=== PATIENT | female | born 1995 | race Caucasian/White ===

== ENCOUNTER 2018-11-08 19:11 | Emergency (ER) | payer MEDICAID ==
[~2018-11-08] VITALS: Ht 160 cm; Wt 77.1 kg
[~2018-11-08 19:11] MED LIST: FER325 PO; PREN1KIT74 PO
[2018-11-08 20:30] VITALS: BP 143/70
--- NOTE | 2018-11-08 21:40 | NUR ---
PT AMBULATED TO BED 10
--- NOTE | 2018-11-08 21:45 | NUR ---
PATIENT PRESENTS TO ED WITH C/O CONGESTION X 1 DAY. PT DENIES N/V/D; SKIN IS PINK/WARM/DRY; AAOX4 WITH EVEN AND STEADY GAIT; LUNGS CLEAR BL; HR EVEN AND REGULAR; PATIENT STATES PAIN OF 2/10 AT THIS TIME; VSS; PATIENT POSITIONED FOR COMFORT; HOB ELEVATED; BEDRAILS UP X2; BED DOWN. ER MD MADE AWARE OF PT STATUS.
--- NOTE | 2018-11-08 22:24 | NUR ---
Patient discharged with v/s stable. Written and verbal after care instructions given and explained. Patient alert, oriented and verbalized understanding of instructions. Ambulatory with steady gait. All questions addressed prior to discharge. ID band removed. Patient advised to follow up with PMD. Rx of MOTRIN, PREDNISONE, AND SUDAFED given. Patient educated on indication of medication including possible reaction and side effects. Opportunity to ask questions provided and answered.
[2018-11-08 22:25] VITALS: BP 143/70
== END 2018-11-08 22:24 | disposition home or self-care (01) ==
LOC: MED 19:11
DX: J32.9 Chronic sinusitis, unspecified (principal); R05 Cough; Z79.899 Other long term (current) drug therapy
CPT/HCPCS: 99283

== ENCOUNTER 2021-01-30 20:57 | Emergency (ER) | payer MEDICAID ==
[~2021-01-30] VITALS: Ht 160 cm; Wt 77.1 kg
[2021-01-30 21:02] VITALS: BP 148/105
--- NOTE | 2021-01-30 21:14 | NUR ---
TO ER BED 3
--- NOTE | 2021-01-30 21:15 | NUR ---
25 Y/O FEMALE CAME TO THE ED FOR BILATERAL LEG PAIN. PT STATES " I HAVE BEEN HAVING PAIN ON BOTH MY LEGS FOR A WEEK, BUT TODAY IT WORSEN. I TOOK NAPROXEN PRIOR TO ARRIVAL, BUT IT DIDN'T HELP ME, PAIN IS 10/10. I ALSO HAVE AN UPPER BACK PAIN ON MY LEFT AREA." DENIES N/V/D; SKIN IS PINK/WARM/DRY; AAOX4 WITH EVEN AND STEADY GAIT; LUNGS CLEAR BL; HR EVEN AND REGULAR; PATIENT POSITIONED FOR COMFORT; HOB ELEVATED; BEDRAILS UP X2; BED DOWN. ER MD MADE AWARE OF PT STATUS. NKA PMH: DENIES
[2021-01-30] MEDS ORDERED: KETOROLAC 30 MG/ML VIAL IVP ONE (21:20)
[2021-01-30] MEDS ORDERED: NACL 0.9% 1,000 ML IV ONE (21:20)
--- NOTE | 2021-01-30 21:43 | NUR ---
IV 20 G STARTED TO RAC. POSITIVE BLOOD RETURN. PT TOLERATED WELL.
[2021-01-30] MEDS ORDERED: IBUP-2213 PO (22:08)
[2021-01-30] MEDS ORDERED: ONDA8TAB87 PO (22:08)
[2021-01-30] MEDS ORDERED: ACET-8386 PO (22:08)
--- NOTE | 2021-01-30 22:20 | NUR ---
COLLECTED NOVEL SWAB AND SENT TO LAB. HANDED TO CPT ARIEL
[2021-01-30 22:55] VITALS: BP 148/105
--- NOTE | 2021-01-30 22:57 | NUR ---
Patient discharged with v/s stable. Written and verbal after care instructions given and explained. Patient alert, oriented and verbalized understanding of instructions. Ambulatory with steady gait. All questions addressed prior to discharge. ID band removed. Patient advised to follow up with PMD. Rx of IBUPROFEN, ZOFRAN, AND NORCO given. Patient educated on indication of medication including possible reaction and side effects. Opportunity to ask questions provided and answered.
== END 2021-01-30 22:57 | disposition home or self-care (01) ==
LOC: MED 20:57
DX: M79.10 Myalgia, unspecified site (principal); Z20.822 Contact with and (suspected) exposure to COVID-19; R11.2 Nausea with vomiting, unspecified; Z79.899 Other long term (current) drug therapy; Z88.8 Allergy status to other drugs, medicaments and biological substances
CPT/HCPCS: 81002; 81025; 96361; 96374; 99283; J1885; J7030; U0003

== ENCOUNTER 2021-02-18 12:12 | Inpatient (IN) | payer MEDICAID, SELFPAY ==
[~2021-02-18] VITALS: Ht 160 cm; Wt 72.6 kg
[~2021-02-18 12:12] MED LIST changes: +ACET-8386 PO; +IBUP-2213 PO; +ONDA8TAB87 PO
[2021-02-18 12:16] VITALS: BP 128/87
--- NOTE | 2021-02-18 12:21 | NUR ---
pt ambulatory to bed #12
--- NOTE | 2021-02-18 12:35 | NUR ---
MARGARET Parr is evaluating the patient at bedside.
--- NOTE | 2021-02-18 12:43 | NUR ---
Patient ambulated to restroom for urine sample.
--- NOTE | 2021-02-18 12:45 | NUR ---
25 y/o F referred from PCP with c/c abnormal labs: Hgb 7.0 Patient A&Ox4, ambulatory, states she was recently diagnosed with anemia and prescribed Iron. Patient was seen at primary care and received results of Hgb 7.0 and advised to visit ER. Patient reports associated "palpitations" with walking. Denies N/V/D, pain, fever/chills, dizziness, syncope, headache, chest pain, SOB. Patient placed into position of comfort; urine sample collected. RR even/unlabored; HR 103. Lung sounds CTA. Bed locked in lowest position, side rails x 1, call light in reach. PMH: Anemia Meds: Iron NKA
--- NOTE | 2021-02-18 12:50 | NUR ---
Lab at bedside
--- NOTE | 2021-02-18 12:55 | NUR ---
RAD at bedside.
--- NOTE | 2021-02-18 12:59 | NUR ---
MARGARET Parr is reevaluating patient at bedside.
[2021-02-18 13:02] LABS: HEMATOCRIT 20.9 % (36-48); LYMPHOCYTES # (AUTO) 0.5 K/uL (2.5-16.5); MONOCYTES # (AUTO) 0.2 K/uL (0.8-1.0); NEUTROPHILS # (AUTO) 2.9 K/uL (1.8-7.7); RED BLOOD CELL COUNT(AUTO) 2.55 MIL/uL (4.20-5.40); RED CELL DISTRIBUTION WIDTH 15.3 % (11.6-13.7); WHITE BLOOD COUNT (AUTO) 4.1 K/uL (4.8-10.8)
[2021-02-18 13:15] LABS: ANION GAP 16.3 (8-16); CARBON DIOXIDE 16.1 mmol/L (21-32); POTASSIUM 5.4 mmol/L (3.5-5.1)
--- NOTE | 2021-02-18 13:15 | NUR ---
Juan otero swab collected, walked to lab and handed to CPT. Joy
[2021-02-18 13:20] LABS: BASOPHILS % (AUTO) 0.2 % (0.0-2.0); EOSINOPHILS # (AUTO) 0.4 K/uL (0-0.4); EOSINOPHILS % (AUTO) 10.9 % (0.0-4.0); LYMPHOCYTES % (AUTO) 11.3 % (20.5-51.1); MEAN CORPUSCULAR HEMOGLOBIN 27 pg (27-31); MEAN CORPUSCULAR HGB CONC 33 g/dL (33-37); MEAN CORPUSCULAR VOLUME 81.9 fL (80-94); MONOCYTES % (AUTO) 5.5 % (1.7-9.3); NEUTROPHILS % (AUTO) 72.1 % (42.2-75.2); PLATELET COUNT (AUTO) 108 K/uL (140-450)
--- NOTE | 2021-02-18 13:23 | NUR ---
Critical lab values received: BUN 70, Cr 2.03, Hgb 6.9, Hct 20.9, Plt 108. MARGARET Parr made aware.
[2021-02-18 13:25] LABS: HEMOGLOBIN 6.9 g/dL (12.0-16.0)
[2021-02-18] MEDS ORDERED: NACL 0.9% 1,000 ML IV ONE (13:45)
[2021-02-18] MEDS ORDERED: POTASSIUM CHLORIDE 10 MEQ TABER PO PRN (13:55)
[2021-02-18] MEDS ORDERED: DOCUSATE SODIUM 100 MG GELCAP PO PRN (13:55)
[2021-02-18] MEDS ORDERED: MAG SULF 2000 MG/WATER PREMIX 50 ML IV PRN (13:55)
[2021-02-18] MEDS ORDERED: LORazepam 2 MG/ML VIAL IM/IVP PRN (13:55)
[2021-02-18] MEDS ORDERED: ONDANSETRON 4 MG/2 ML VIAL IM/IVP PRN (13:55)
--- NOTE | 2021-02-18 14:01 | NUR ---
US AT BEDSIDE
--- NOTE | 2021-02-18 14:07 | NUR ---
Lab at bedside for blood draw.
--- NOTE | 2021-02-18 14:14 | NUR ---
Lab collected, handed to CPT Meaghan at ER bedside.
[2021-02-18 14:52] LABS: BILIRUBIN,URINE NEGATIVE (NEGATIVE); BLOOD, URINE 3+ (NEGATIVE); COLOR,URINE YELLOW (YELLOW); LEUKOCYTE ESTERASE ,URINE 1+ (NEGATIVE); NITRITE, URINE NEGATIVE (NEGATIVE); PH,URINE 5.5 (5.0-9.0); UGLUCOSE NEGATIVE (NEGATIVE)
[2021-02-18 15:00] LABS: APPEARANCE,URINE HAZY (CLEAR)
--- NOTE | 2021-02-18 15:06 | NUR ---
Report given to LONI Mendoza.
[2021-02-18 15:08] LABS: BARBITURATE, URINE NEGATIVE ng/ml (NEG <=200); BENZODIAZEPINE, URINE NEGATIVE ng/mL (NEG <=200); CANNABINOID, URINE NEGATIVE ng/mL (NEG <=50); COCAINE, URINE NEGATIVE ng/mL (NEG <=300); OPIATE, URINE POSITIVE ng/mL (NEG <=2000); PHENCYCLIDINE SCREEN,URINE NEGATIVE ng/mL (NEG <=25)
--- NOTE | 2021-02-18 15:16 | NUR ---
Patient will be admitted to care of Dr. Suarez. Admited to Med-Surg. Will go to [id number]. Belongings list completed. Report to LONI Mendoza.
[2021-02-18 15:22] LABS: PROTHROMBIN TIME 10.1 secs (10.8-13.4)
[2021-02-18 15:30] VITALS: BP 125/77
--- NOTE | 2021-02-18 15:30 | NUR ---
Admitted from ED , with chief complaint of PALPITATIONS, TIREDNESS X 3 WEEKS . PT IS AAOX4, 25 y/o ,Female, Cooperative, oriented to call light, bed, phone,television, bathroom, smoking policy,visiting hours, procedures, ID bracelet on. Belongings list checked. INSTRUCTED PT TO CALL FOR ASSISTANCE, CALL LIGHT WITHIN REACH. PT VERBALIZED UNDERSTANDING.
[2021-02-18] MEDS: NACL 0.9% 1,000 ML IV SCH ×2 (16:44→23:55)
[2021-02-18 17:12] LABS: CHOL/HDL RATIO 6.8 (1-4.5); FREE T4 (FREE THYROXINE) 1.22 ng/dL (0.76-1.46); MAGNESIUM 2.4 mg/dL (1.8-2.4); PHOSPHORUS 6.5 mg/dL (2.5-4.9); THYROID STIMULATING HORMONE 1.46 uIU/mL (0.34-3.74)
--- NOTE | 2021-02-18 17:30 | NUR ---
PT SEEN BY DR. DOAN AT THE BEDSIDE.
[2021-02-18 17:56] LABS: ALBUMIN 1.2 g/dL (3.4-5.0)
[2021-02-18 18:11] LABS: POTASSIUM 5.5 mmol/L (3.5-5.1)
[2021-02-18 18:17] LABS: ANION GAP 18.7 (8-16); CARBON DIOXIDE 12.8 mmol/L (21-32); TOTAL BILIRUBIN 0.2 mg/dL (0.0-1.0)
--- NOTE | 2021-02-18 18:45 | NUR ---
1 UNIT PRBC STARTED. V/S STABLE. WILL MONITOR FOR BLOOD TRANSFUSION REACTIONS.
--- NOTE | 2021-02-18 19:00 | NUR ---
PT'S TEMPERATURE ELEVATED (100.0 F) COOLING MEASURES PROVIDED. WILL CONTINUE TO MONITOR FOR BLOOD TRANSFUSION REACTIONS.
--- NOTE | 2021-02-18 19:10 | NUR ---
PT AMBULATORY TO THE BATHROOM, ACTIVITY TOLERATED WELL. ENDORSED TO NEXT SHIFT NURSE FOR CONTINUITY OF CARE.
[2021-02-18 20:00] VITALS: BP 128/57
--- NOTE | 2021-02-18 20:00 | NUR ---
RECEIVED A REPORT FROM DAY RN EARLIER FOR CONTINUITY OF CARE. PATIENT A/A/OX4, LAYING IN BED GETTING BLOOD TRANSFUSION. PER RN DEANNA PATIENT STARTED HAVING FEVER 100.0 AFTER 15 MINUTES OF TRANSFUSION. PATIENT DENIES ANY CHEST PAIN, SOB, PALPITATIONS AND ITCHING. INSTRUCTED THE PATIENT NOT TO BUNDLE UP WITH HER BLANKET BECAUSE SHE HAS FEVER AND PATIENT VERBALIZED UNDERSTANDING. WILL CONTINUE TO MONITOR THE PATIENT AND WILL NOTIFY MD ABOUT THE PT HAVING FEVER. CALL LIGHT WITHIN REACH.
--- NOTE | 2021-02-18 20:45 | NUR ---
CALLED DR SIEGEL AND NOTIFIED MD THAT THE PATIENT IS HAVING FEVER 101.0 SINCE THE BLOOD TRANSFUSION WAS STARTED PER DAY LONI HUERTA.ALSO MD MADE AWARE THAT THE PATIENT DENIES ANY SOB, PALPITATIONS AND CHEST PAIN. PATIENT ONLY COMPLAINING OF SHIVERING BECAUSE OF THE FEVER. SPOKE WITH DR SIEGEL AND AWARE. ORDERED TO GIVE THE PRN TYLENOL 650 MG PO.
[2021-02-18] MEDS: ACETAMINOPHEN 325 MG TAB PO PRN (20:53)
--- NOTE | 2021-02-18 22:34 | NUR ---
BLOOD TRANSFUSION STILL ON GOING. APTIENT WAS GIVEN TYLENOL 650 MG PO EARLIER. LATEST TEMPERATURE NOW IS 99.9. INSTRUCTED THE PATIENT TO START SAVING ALL HER URINE FOR THE 24 HOUR URINE COLLECTION ORDERED. PATIENT VERBALIZED UNDERSTANDING. WILL CONTINUE TO OBSERVE.
--- NOTE | 2021-02-18 23:15 | NUR ---
1 UNIT OF PRBC TRANSFUSED ORDERED AND COMPLETED. NO TRANSFUSION REACTION NOTED AND NO COMPLAIN FROM THE PATIENT. WILL REPEAT H/H IN 2 HOURS.
[2021-02-19] VITALS: BP 123/84
--- NOTE | 2021-02-19 02:18 | NUR ---
PATIENT ASLEEP AT THIS TIME. VISIBLE CHEST RISE AND FALL NOTED. PT NOT IN ANY DISTRESS AND NO COMPLAIN AT THIS TIME. CALL LIGHT WITHIN REACH.
[2021-02-19 03:20] LABS: BASOPHILS % (AUTO) 0.4 % (0.0-2.0); EOSINOPHILS # (AUTO) 0.4 K/uL (0-0.4); EOSINOPHILS % (AUTO) 8.6 % (0.0-4.0); HEMATOCRIT 21.2 % (36-48); LYMPHOCYTES # (AUTO) 0.8 K/uL (2.5-16.5); LYMPHOCYTES % (AUTO) 16.8 % (20.5-51.1); MEAN CORPUSCULAR HEMOGLOBIN 26 pg (27-31); MEAN CORPUSCULAR HGB CONC 33 g/dL (33-37); MEAN CORPUSCULAR VOLUME 78.2 fL (80-94); MONOCYTES # (AUTO) 0.3 K/uL (0.8-1.0); MONOCYTES % (AUTO) 6.2 % (1.7-9.3); NEUTROPHILS # (AUTO) 3.1 K/uL (1.8-7.7); PLATELET COUNT (AUTO) 86 K/uL (140-450); RED BLOOD CELL COUNT(AUTO) 2.71 MIL/uL (4.20-5.40); RED CELL DISTRIBUTION WIDTH 17.9 % (11.6-13.7); WHITE BLOOD COUNT (AUTO) 4.5 K/uL (4.8-10.8)
[2021-02-19 03:27] LABS: HEMOGLOBIN 6.9 g/dL (12.0-16.0)
--- NOTE | 2021-02-19 03:38 | NUR ---
PATIENT HGB-6.9 AND HCT-21.2 AFTER THE 1 UNIT BLOOD TRANSFUSION. MESSAGED DR SIEGEL AND AWAITING FOR MD TO RESPOND.
[2021-02-19 03:55] LABS: MAGNESIUM 2.1 mg/dL (1.8-2.4)
[2021-02-19 04:00] VITALS: BP 124/91
--- NOTE | 2021-02-19 04:00 | NUR ---
VITAL SIGNS STABLE, AFEBRILE, SATING 100% ON RA. NOT IN ANY DISTRESS AND NO COMPLAIN AT THIS TIME. CALL LIGHT WITHIN REACH.
[2021-02-19 04:01] LABS: ANION GAP 14.4 (8-16); POTASSIUM 5.4 mmol/L (3.5-5.1)
[2021-02-19 04:02] LABS: CREATININE 1.6 mg/dL (0.6-1.3)
--- NOTE | 2021-02-19 06:42 | NUR ---
PATIENT STABLE. NO ACUTE EVENTS THROUGHOUT THE NIGHT. PT NOT IN ANY DISTRESS. NO COMPLAIN AT THIS TIME. ALL NEEDS ATTENDED.CALL LIGHT WITHIN REACH. WILL ENDORSE THE PT TO THE ONCOMING RN FOR CONTINUITY OF CARE.
--- NOTE | 2021-02-19 07:30 | NUR ---
PT ENDORSED FOR CONTINUIYT OF CARE. POC DISCUSSED. PT IS RESTING COMFORTABLE IN BED. PT RECEIVED TRANSFUSION DURING PROPERTY MAINTENANCE TECHNICIAN. HGB FROM AM CAME BACK AT 6.9, ANOTHER UNIT OF RBC DUE. PT IS ON RA WITH CHEST RISING AND FALLING EVEN AND UNLABORED. SAFETY MEASURES IN PLACE, CALL LIGHT WITHIN REACH. WILL CONTINUE TO MONITOR.
--- NOTE | 2021-02-19 07:38 | NUR ---
ENDORSED PATIENT TO DAY RN FOR CONTINUITY OF CARE. SIGNING OFF.
[2021-02-19 08:00] VITALS: BP 128/57
--- NOTE | 2021-02-19 08:36 | NUR ---
PATIENT HAS BEEN SCREENED AND CATEGORIZED HIGH NUTRITION RISK. PATIENT WILL BE SEEN WITHIN 1-2 DAYS OF ADMISSION. 02/19/21-02/20/21 PATIENT NEEDED FNS REFERRAL FOR [address] SAM[address] C[address]
--- NOTE | 2021-02-19 09:24 | NUR ---
DC PLANNIN YRS OLD FEMALE PATIENT WAS ADMITTED FROM HOME WITH A DX OF ANEMIA. PT HAS NO MEDICAL HISTORY. H/H 6.9/20.9 TRANSFUSED 1 UNIT OF PRBC. CXR NO ACUTE FINDINGS. RENAL US SHOWED REPRESENT A COLUMN OF PATRIZIA VERSUS UNDERLYING MASS. CT HEAS NEGATIVE. CT ABD/PELVIS SHOWED SMALL PERICARDIAL EFFUSION. RAPID COVID TEST NEGATIVE. BLOOD AND URINE CULTURE PENDING. ADMINISTERED IVF, IV ABX ROCEPHIN CONSULTED WITH STAKING ENGINEER FOR DORENE AND STUDENT SERVICES REPRESENTATIVE DR DOAN PANCYTOPENIA. DC PLANING TO GO HOME WHEN STABLE CM TO FOLLOW
[2021-02-19] MEDS ORDERED: SODIUM ZIRCONIUM CYCLOSILICATE 10 GM POWD.PACK PO SCH (09:30)
--- NOTE | 2021-02-19 10:15 | NUR ---
BLOOD TRANSFUSION STARTED. PT VITAL SIGNS STABLE. PT STATES NO SIGNS OF ACUTE DISTRESS. SAFETY MEASURES IN PLACE, CALL LIGHT WITHIN REACH.
[2021-02-19] MEDS: FERROUS SULFATE 325 MG TABEC PO SCH (10:19)
[2021-02-19] MEDS: ASCORBIC ACID 500 MG/5 ML ORASYR PO SCH (10:19)
[2021-02-19] MEDS: NACL 0.9% 1,000 ML IV SCH ×2 (10:20→19:55)
[2021-02-19] MEDS: CALCIUM ACETATE 667 MG TAB PO SCH ×2 (12:43→17:02)
--- NOTE | 2021-02-19 13:24 | NUR ---
02/19/21 RD INITIAL ASSESSMENT COMPLETED PLEASE REFER TO NUTRITION ASSESSMENT UNDER CARE ACTIVITY FOR ESTIMATED NUTRITIONAL NEEDS. 1. CONTINUE RENAL DIET TOLERATED 2. IF P.O INTAKE IS >75% RECOMMEND NEPRO/ENSURE. 3. RD TO FOLLOW-UP 2-3 DAYS, HIGH RISK SAMANTHA CARR, RD
--- NOTE | 2021-02-19 13:31 | NUR ---
BLOOD TRANSFUSION COMPLETE. PT TOLERATED PROCEDURE. PT IN STABLE CONDITION WITH NO SIGNS OF ACUTE DISTRESS. SAFETY MEASURE IN PLACE, CALL LIGHT WITHIN REACH.
[2021-02-19 16:00] VITALS: BP 140/80
--- NOTE | 2021-02-19 16:34 | NUR ---
CONSENT SIGNED FOR CT OF ABDOMEN WITH CONTRAST
--- NOTE | 2021-02-19 18:26 | NUR ---
PT RETURNED FROM CT IN STABLE CONDITION.
--- NOTE | 2021-02-19 19:24 | NUR ---
PT ENDORSED TO CHEESE CUTTER FOR CONTINUITY OF CARE. IN STABLE CONDITION
--- NOTE | 2021-02-19 19:30 | NUR ---
PT ENDORSED TO LAND ECONOMIST FOR CONTINUITY OF CARE, POC DISCUSSE.
--- NOTE | 2021-02-19 19:35 | NUR ---
RECEIVED BEDSIDE REPORT FROM CHRISTIAN MESA. PT AOX4 ON ROOM AIR. NO S/S RESPIRATORY DISTRESS. NO C/O PAIN AT THIS TIME. IV SITE LAC PATENT INTACT INFUSING IVF ORDERED WELL. S/P 1 UNIT PRBC 02/19/21. SAFETY MEASURES IN PLACE. CALL LIGHT WITHIN REACH. WILL CONTINUE TO MONITOR
[2021-02-19 20:00] VITALS: BP 150/87
[2021-02-19 20:20] LABS: HEMOGLOBIN 7.9 g/dL (12.0-16.0)
[2021-02-19] MEDS: ZOLPIDEM 5 MG TAB PO PRN (21:12)
--- NOTE | 2021-02-19 21:15 | NUR ---
MARCO A HERNÁNDEZ GIVEN FOR C/O SLEEPLESSNESS. EDUCATION PROVIDED. PT VERBALIZED UNDERSTANDING. NO DISTRESS NOTED. CALL LIGHT WITHIN REACH. WILL CONTINUE TO MONITOR. 24 HR URINE COLLECTION ONGOING
--- NOTE | 2021-02-19 22:54 | NUR ---
PATIENT ASLEEP IN BED. RESPIRATIONS EVEN UNLABORED. NO DISTRESS NOTED. IVF INFUSING WELL. CALL LIGHT WITHIN REACH. WILL CONTINUE TO MONITOR
--- NOTE | 2021-02-20 01:03 | NUR ---
PATIENT ASLEEP IN BED. RESPIRATIONS EVEN UNLABORED. NO DISTRESS NOTED. IVF INFUSING WELL. CALL LIGHT WITHIN REACH. WILL CONTINUE TO MONITOR
[2021-02-20] MEDS: NACL 0.9% 1,000 ML IV SCH ×3 (01:13→23:55)
--- NOTE | 2021-02-20 02:41 | NUR ---
PATIENT ASLEEP IN BED. RESPIRATIONS EVEN UNLABORED. NO DISTRESS NOTED. IVF INFUSING WELL. CALL LIGHT WITHIN REACH. WILL CONTINUE TO MONITOR
--- NOTE | 2021-02-20 02:50 | NUR ---
24 HR URINE COLLECTION ROUTED TO LAB
[2021-02-20 04:00] VITALS: BP 142/85
[2021-02-20] MEDS: ACETAMINOPHEN 325 MG TAB PO PRN ×2 (04:03→16:31)
--- NOTE | 2021-02-20 04:09 | NUR ---
PRN TYLENOL GIVEN FOR TEMP 100.4. EDUCATION PROVIDED. PT VERBALIZED UNDERSTANDING. PROVIDED COOLING MEASURES AND FLUIDS. PT AOX4, DENIES PAIN, DENIES SOB. NO DISTRESS NOTED. CALL LIGHT WITHIN REACH. WILL CONTINUE TO MONITOR
--- NOTE | 2021-02-20 05:15 | NUR ---
REASSESSED TEMP 99.6. NO DISTRESS NOTED. CALL LIGHT WITHIN REACH. WILL CONTINUE TO MONITOR
[2021-02-20 05:56] LABS: BASOPHILS % (AUTO) 0.3 % (0.0-2.0); EOSINOPHILS # (AUTO) 0.3 K/uL (0-0.4); EOSINOPHILS % (AUTO) 6.8 % (0.0-4.0); HEMATOCRIT 24.7 % (36-48); HEMOGLOBIN 8.1 g/dL (12.0-16.0); LYMPHOCYTES # (AUTO) 0.6 K/uL (2.5-16.5); LYMPHOCYTES % (AUTO) 14.9 % (20.5-51.1); MEAN CORPUSCULAR HEMOGLOBIN 27 pg (27-31); MEAN CORPUSCULAR HGB CONC 33 g/dL (33-37); MEAN CORPUSCULAR VOLUME 80.5 fL (80-94); MONOCYTES # (AUTO) 0.3 K/uL (0.8-1.0); MONOCYTES % (AUTO) 7.3 % (1.7-9.3); NEUTROPHILS # (AUTO) 3.1 K/uL (1.8-7.7); NEUTROPHILS % (AUTO) 70.7 % (42.2-75.2); PLATELET COUNT (AUTO) 91 K/uL (140-450); RED BLOOD CELL COUNT(AUTO) 3.07 MIL/uL (4.20-5.40); RED CELL DISTRIBUTION WIDTH 17.5 % (11.6-13.7); WHITE BLOOD COUNT (AUTO) 4.3 K/uL (4.8-10.8)
[2021-02-20 05:59] LABS: ANION GAP 12.9 (8-16); CARBON DIOXIDE 15.3 mmol/L (21-32); CREATININE 0.9 mg/dL (0.6-1.3); POTASSIUM 5.2 mmol/L (3.5-5.1)
[2021-02-20 06:07] LABS: FOLIC ACID 5.6 ng/mL (>3.0)
[2021-02-20 06:09] LABS: MAGNESIUM 1.8 mg/dL (1.8-2.4); PHOSPHORUS 2.9 mg/dL (2.5-4.9)
--- NOTE | 2021-02-20 07:30 | NUR ---
ENDORSED PATIENT TO DAY RN FOR CONTINUITY OF CARE. PATIENT IS IN STABLE CONDITION
--- NOTE | 2021-02-20 07:30 | NUR ---
RECEIVED REPORT FROM BODY BUMPER RN FOR CONTINUITY OF CARE. PATIENT ASLEEP IN BED IN SUPINE POSITION. BREATHING EVEN UNLABORED ON RA. IV TO LEFT 20G INFUSING IVF NS@ 100ML/HR. NO ACUTE DISTRESS NOTED AT THIS TIME. SAFETY MEASURES IN PLACE. WILL CONTINUE TO MONITOR.
[2021-02-20 08:00] VITALS: BP 131/77
[2021-02-20] MEDS ORDERED: SODIUM ZIRCONIUM CYCLOSILICATE 10 GM POWD.PACK PO SCH (09:00)
[2021-02-20] MEDS: CALCIUM ACETATE 667 MG TAB PO SCH (09:04)
[2021-02-20] MEDS: ASCORBIC ACID 500 MG/5 ML ORASYR PO SCH (09:04)
[2021-02-20] MEDS: FERROUS SULFATE 325 MG TABEC PO SCH (09:04)
--- NOTE | 2021-02-20 09:04 | NUR ---
SCHEDULED MEDICATIONS GIVEN, EDUCATION PROVIDED. SAFETY MEASURES IN PLACE, WILL CONTINUE TO MONITOR.
[2021-02-20 10:56] LABS: IMMUNOGLOBULIN A 518 mg/dL (70 - 400); IMMUNOGLOBULIN G 2723 mg/dL (700 - 1600); IMMUNOGLOBULIN M 341 mg/dL (40 - 230)
--- NOTE | 2021-02-20 11:12 | NUR ---
PATIENT RESTING IN BED IN SUPINE POSITION. IV INFUSING ORDERED. WILL CONTINUE TO MONITOR.
--- NOTE | 2021-02-20 13:02 | NUR ---
PATIENT RESTING IN BED DENIES DISCOMFORT AT THIS TIME, AT BEDSIDE. WILL CONTINUE TO MONITOR.
[2021-02-20 16:00] VITALS: BP 141/89
--- NOTE | 2021-02-20 16:31 | NUR ---
TYLENOL GIVEN FOR TEMP 100.2, INFORMED DR. ROSA REGARDING THE HIGH TEMP AND HR 118, NO NEW ORDER OBTAINED. COOLING MEASURES APPLIED. SAFETY MEASURES IN PLACE, WILL CONTINUE TO MONITOR.
--- NOTE | 2021-02-20 19:18 | NUR ---
ENDORSED PATIENT TO SEWAGE DISPOSAL ENGINEER RN FOR CONTINUITY OF CARE. PATIENT IN STABLE CONDITION.
--- NOTE | 2021-02-20 19:19 | NUR ---
RECEIVED BEDSIDE REPORT FROM DAY RN JOSH. PT AOX4 ON ROOM AIR. NO S/S RESPIRATORY DISTRESS. NO C/O PAIN AT THIS TIME. IV SITE LAC PATENT INTACT INFUSING IVF PER MD ORDERS. SAFETY MEASURES IN PLACE. CALL LIGHT WITHIN REACH. WILL CONTINUE TO MONITOR
--- NOTE | 2021-02-20 19:44 | NUR ---
PT C/O COUGH. MESSAGED RESEARCH STATISTICIAN DR. ROSA, AWAITING RESPONSE
[2021-02-20] MEDS: guaiFENesin DM 200/20 MG-10 ML 10 ML UDC PO PRN (19:54)
--- NOTE | 2021-02-20 19:57 | NUR ---
PRN ROBITUSSIN GIVEN FOR C/O COUGH. EDUCATION PROVIDED. PT VERBALIZED UNDERSTANDING. NO DISTRESS NOTED. BOYFRIEND AT BEDSIDE. POC DISCUSSED. INFORMED PATIENT OF NPO STATUS AFTER MIDNIGHT. GRIPPER ATTACHER AWARE. CALL LIGHT WITHIN REACH. WILL CONTINUE TO MONITOR
[2021-02-20 20:00] VITALS: BP 140/79
--- NOTE | 2021-02-20 22:06 | NUR ---
PATIENT ASLEEP IN BED. RESPIRATIONS EVEN UNLABORED. NO DISTRESS NOTED. IVF INFUSING WELL. CALL LIGHT WITHIN REACH. WILL CONTINUE TO MONITOR
[2021-02-20] MEDS: ZOLPIDEM 5 MG TAB PO PRN (23:56)
--- NOTE | 2021-02-20 23:56 | NUR ---
ADMINISTERED IVF PER MD ORDERS. PRN BETTY GIVEN FOR C/O INSOMNIA. EDUCATION PROVIDED. PT VERBALIZED UNDERSTANDING. NO DISTRESS NOTED. CALL LIGHT WITHIN REACH. WILL CONTINUE TO MONITOR
--- NOTE | 2021-02-21 02:41 | NUR ---
PATIENT ASLEEP IN BED. RESPIRATIONS EVEN UNLABORED. NO DISTRESS NOTED. IVF INFUSING WELL ORDERED. CALL LIGHT WITHIN REACH. WILL CONTINUE TO MONITOR
[2021-02-21 04:00] VITALS: BP 151/82
[2021-02-21 05:26] LABS: BASOPHILS % (AUTO) 0.5 % (0.0-2.0); EOSINOPHILS # (AUTO) 0.2 K/uL (0-0.4); EOSINOPHILS % (AUTO) 5.9 % (0.0-4.0); HEMATOCRIT 25.5 % (36-48); HEMOGLOBIN 8.4 g/dL (12.0-16.0); LYMPHOCYTES # (AUTO) 0.6 K/uL (2.5-16.5); MEAN CORPUSCULAR HEMOGLOBIN 26 pg (27-31); MEAN CORPUSCULAR HGB CONC 33 g/dL (33-37); MEAN CORPUSCULAR VOLUME 79.7 fL (80-94); MONOCYTES # (AUTO) 0.3 K/uL (0.8-1.0); MONOCYTES % (AUTO) 6.7 % (1.7-9.3); NEUTROPHILS % (AUTO) 72.9 % (42.2-75.2); PLATELET COUNT (AUTO) 93 K/uL (140-450); WHITE BLOOD COUNT (AUTO) 4.1 K/uL (4.8-10.8)
--- NOTE | 2021-02-21 05:27 | NUR ---
MESSAGED CORE SHAPER SIDES DR. ROSA. PT TEMP 102.3, ONLY HAS TYLENOL PRN PO. PT ON NPO STATUS. AWAITING RESPONSE
--- NOTE | 2021-02-21 05:28 | NUR ---
PROVIDED COOLING MEASURES. PT AOX4 ON ROOM AIR. NO S/S RESPIRATORY DISTRESS. CALL LIGHT WITHIN REACH. WILL CONTINUE TO MONITOR
[2021-02-21 05:39] LABS: ANION GAP 16.4 (8-16); CARBON DIOXIDE 14.5 mmol/L (21-32); CREATININE 0.9 mg/dL (0.6-1.3); POTASSIUM 4.9 mmol/L (3.5-5.1)
[2021-02-21 05:44] LABS: MAGNESIUM 1.7 mg/dL (1.8-2.4); PHOSPHORUS 3.2 mg/dL (2.5-4.9)
--- NOTE | 2021-02-21 06:13 | NUR ---
PAGED DR. ROSA FOR TEMP 102.3, HR 130. NEW ORDERS RECEIVED. WILL CARRY OUT
[2021-02-21] MEDS ORDERED: KETOROLAC 15 MG/ML VIAL IVP ONE (06:15)
[2021-02-21] MEDS ORDERED: KETOROLAC 15 MG/ML VIAL ONE (06:22)
--- NOTE | 2021-02-21 06:25 | NUR ---
TORADOL IVP GIVEN ORDERED FOR FEVER. EDUCATION PROVIDED. PT VERBALIZED UNDERSTANDING. NO DISTRESS NOTED. CALL LIGHT WITHIN REACH. WILL CONTINUE TO MONITOR
--- NOTE | 2021-02-21 07:15 | NUR ---
ENDORSED PATIENT TO DAY RN FOR CONTINUITY OF CARE. PATIENT IS IN STABLE CONDITION
--- NOTE | 2021-02-21 07:17 | NUR ---
RECEIVED PATIENT FROM NIGHT NURSE. PATIENT IN BED AWAKE AND ALERT. RESP EVEN AND UNLABORED ON ROOM AIR. DENIED OF PAIN AT THIS TIME. LAC 20G INFUSING NS. PLAN OF CARE DISCUSSED, PATIENT VERBALIZED UNDERSTANDING. HOB ELEVATED, SAFETY MEASURES IN PLACE. BED IN LOW POSITIONS. CALL LIGHT WITHIN REACH. WILL CONTINUE TO MONITOR.
[2021-02-21] MEDS: ASCORBIC ACID 500 MG/5 ML ORASYR PO SCH (09:00)
[2021-02-21] MEDS: NACL 0.9% 1,000 ML IV SCH ×2 (09:14→21:55)
--- NOTE | 2021-02-21 09:25 | NUR ---
PATIENT MORNING MEDICATION HELD. PATIENT NPO. ICE PACK GIVEN FOR TEMP 99.3. PATIENT MAG LEVEL 1.7. MAG RID GIVEN. PITTING 1+ NOTED TO LOWER BILATERAL LEGS, WITH RASH AROUND ANKLE. NO DISTRESS NOTED. CARE PLAN DISCUSSED WITH PATIENT. PATIENT VERBALIZED UNDERSTANDING. LEFT AC 20G INTACT AND PATENT INFUSING NS 100 ML/HR. PATIENT IS AMBULATORY AND ABLE TO MAKE NEEDS KNOWN. SISTER AT BEDSIDE. ALL QUESTIONS ANSWERED. CALL LIGHT WITHIN REACH. WILL CONTINUE TO MONITOR.
--- NOTE | 2021-02-21 12:33 | NUR ---
PATIENT IN BED SLEEPING, CHEST NOTED RISING. CALL LIGHT WITHIN REACH. WILL CONTINUE TO MONITOR.
--- NOTE | 2021-02-21 14:50 | NUR ---
PATIENT IN BED SLEEPING, CHEST NOTED RISING. CALL LIGHT WITHIN REACH. WILL CONTINUE TO MONITOR.
[2021-02-21 16:00] VITALS: BP 133/82
--- NOTE | 2021-02-21 16:35 | NUR ---
PATIENT WAS ASKING FOR HER PLAN OF CARE OR ANY UPCOMING PROCEDURE SCHEDULED. DR ROSA MADE AWARE OF PATIENT CONCERNS. WILL FOLLOW UP WITH PATIENT ABOUT HER PLAN OF CARE. PATIENT SITTING BY BEDSIDE, BOYFRIEND PRESENT IN ROOM WITH PATIENT. NO NOTED DISTRESS AT THIS TIME. CALL LIGHT WITHIN REACH. WILL CONTINUE TO MONITOR.
--- NOTE | 2021-02-21 18:16 | NUR ---
PATIENT ALERT AND AWAKE. DIET ORDER CHANGED TO REGULAR DIET FOR DINNER AND PATIENT WILL BE NPO AFTER MIDNIGHT POSSIBLE CT NEEDLE BIOPSY TOMORROW PER DR. ROSA. PATIENT MADE AWARE AND VERBALIZE UNDERSTANDING. WILL CONTINUE TO MONITOR.
[2021-02-21] MEDS: ACETAMINOPHEN 325 MG TAB PO PRN (18:20)
--- NOTE | 2021-02-21 18:20 | NUR ---
TYLENOL PRN PO GIVEN FOR TEMP 101.4. FLUIDS AND COOLING MEASURES PROVIDED. WILL REASSESS FOR EFFECTIVENESS. PATIENT DENIED OF PAIN.
--- NOTE | 2021-02-21 18:39 | NUR ---
RECEIVED ORDERS FROM DR ROSA FOR BLOOD CULTURE STAT, ROCEPHIN 1000MG IV Q24H STARTING FIRST DOSE TONIGHT, SOLUMEDROL 20MG IVP X1 NOW. ORDERS READ BACK AND CONFIRMED. ORDERS CARRIED OUT.
--- NOTE | 2021-02-21 19:15 | NUR ---
ENDORSED PATIENT TO NIGHT NURSE. ENDORSED TEMP REASSESSMENT TO NIGHT NURSE. PATIENT IN STABLE CONDITION. BOYFRIEND AT BEDSIDE. PATIENT WILL NPO AFTER MIDNIGHT AND VERBALIZED UNDERSTANDING.
--- NOTE | 2021-02-21 19:16 | NUR ---
RECD. RESTING IN BED, AWAKE, A/OX4. RESPIRATION EVEN AND UNLABORED. IV OF NS AT 100 ML/HR LEFT AC G20. AMBULATORY TO THE BR. BILATERAL LOWER EXTREMITIES WITH RASHES. TEMPERATURE CHECKED - 99.7F. MEDICATIONS FOR THE NIGHT DISCUSSED WITH PATIENT. VERBALIZED UNDERSTANDING. ABLE TO EAT 50% OF DINNER. DENIES PAIN 0/10
[2021-02-21 20:00] VITALS: BP 132/75
--- NOTE | 2021-02-21 20:35 | NUR ---
SCHEDULE MEDICATIONS, ROCEPHIN AND SOLU-MEDROL IVP GIVEN BY CHARGE NURSE DEIDRE. TOLERATED WELL.
[2021-02-21] MEDS ORDERED: methylPREDNISolone SS 40 MG/ML VIAL IVP SCH (21:00)
--- NOTE | 2021-02-21 21:00 | NUR ---
Patient's Plan of Care was discussed and reviewed with SAFETY TECH: ASTRID HOPSON
--- NOTE | 2021-02-22 | NUR ---
SLEEPING COMFORTABLY IN BED.
--- NOTE | 2021-02-22 02:00 | NUR ---
AMBULATED TO TO VOID. BACK TO BED AFTER VOIDING.
[2021-02-22] MEDS: NACL 0.9% 1,000 ML IV SCH ×3 (03:44→13:08)
[2021-02-22 04:00] VITALS: BP 124/81
--- NOTE | 2021-02-22 04:00 | NUR ---
VS STABLE. NO COMPLAINT OF PAIN 0/10.
[2021-02-22 05:54] LABS: ANION GAP 11.8 (8-16); CARBON DIOXIDE 16.8 mmol/L (21-32); CREATININE 1.4 mg/dL (0.6-1.3); POTASSIUM 5.6 mmol/L (3.5-5.1)
[2021-02-22 06:01] LABS: MAGNESIUM 2.6 mg/dL (1.8-2.4); PHOSPHORUS 4.8 mg/dL (2.5-4.9)
[2021-02-22 06:18] LABS: BASOPHILS % (AUTO) 0.5 % (0.0-2.0); EOSINOPHILS % (AUTO) 1.1 % (0.0-4.0); HEMATOCRIT 25.2 % (36-48); HEMOGLOBIN 8.3 g/dL (12.0-16.0); LYMPHOCYTES # (AUTO) 0.4 K/uL (2.5-16.5); MEAN CORPUSCULAR HEMOGLOBIN 27 pg (27-31); MEAN CORPUSCULAR HGB CONC 33 g/dL (33-37); MEAN CORPUSCULAR VOLUME 81.6 fL (80-94); MONOCYTES # (AUTO) 0.1 K/uL (0.8-1.0); MONOCYTES % (AUTO) 3.8 % (1.7-9.3); NEUTROPHILS # (AUTO) 3.1 K/uL (1.8-7.7); NEUTROPHILS % (AUTO) 83.6 % (42.2-75.2); PLATELET COUNT (AUTO) 78 K/uL (140-450); RED BLOOD CELL COUNT(AUTO) 3.09 MIL/uL (4.20-5.40); RED CELL DISTRIBUTION WIDTH 17.4 % (11.6-13.7); WHITE BLOOD COUNT (AUTO) 3.7 K/uL (4.8-10.8)
--- NOTE | 2021-02-22 06:30 | NUR ---
CONDITION REMAIN STABLE. WILL ENDORSE TO AM SHIFT NURSE FOR CONTINUITY OF CARE.
--- NOTE | 2021-02-22 07:26 | NUR ---
PT ENDORSED FOR CONTINUITY OF CARE, POC DISCUSSED. PT IS IN STABLE CONDITION. PT IS RESTING COMFORTABLE IN BED WITH NO SIGNS OF ACUTE DISTRESS, PT VERBALIZED ALL NEEDS ARE MET AT THIS TIME. PT HAS A LEFT AC 20 GAUGE RUINNING NS AT 100 ML/HR. PT IS ON ROOM AIR, WITH CHEST RISING AND FALLING EVEN AND UNLABORED. SAFETY MEASURES IN PLACE, CALL LIGHT WITHIN REACH. WILL CONTINUE TO MONITOR.
--- NOTE | 2021-02-22 07:30 | NUR ---
ENDORSED TO AM SHIFT NURSE FOR CONTINUITY OF CARE.
--- NOTE | 2021-02-22 08:21 | NUR ---
VANESSA, SISTER AT BEDSIDE. STATED SHE WILL RETURN SINCE PT IS ASLEEP IN BED.
[2021-02-22] MEDS ORDERED: CRUSHER, PILL MC ONE (08:46)
[2021-02-22] MEDS: ASCORBIC ACID 500 MG/5 ML ORASYR PO SCH ×2 (09:00→09:29)
--- NOTE | 2021-02-22 09:21 | NUR ---
DISCUSSED THE US GUIDED NEEDLE BIOPSY WITH JEREMY, JEREMY STATED PT NEEDS TO REMAIN NPO EXCEPT MEDS FOR PROCEDURE. ALSO STATED THAT THE OR DR WILL SIGN CONSENT, ALL THAT NEEDS TO BE DONE IS PRINTED AND PLACED IN CHART. INFORMED PT OF TIME OF NEEDLE BIOPSY AT 1500.
--- NOTE | 2021-02-22 10:05 | NUR ---
SISTER AT BEDSIDE. PT VERBALIZED ALL NEEDS ARE MET, PT IS IN STABLE CONDITION. SAFETY MEASURES IN PLACE, CALL LIGHT WITHIN REACH. WILL CONTINUE TO MONITOR.
[2021-02-22] MEDS ORDERED: SODIUM ZIRCONIUM CYCLOSILICATE 10 GM POWD.PACK PO SCH (11:00)
--- NOTE | 2021-02-22 12:02 | NUR ---
ROUNDED ON PT, PT SISTER IS STILL AT BEDSIDE. PT VERBALIZED ALL NEEDS ARE BEING MET. NO SIGNS OF ACUTE DISTRESS. SAFETY MEASURES IN PLACE, CALL LIGHT WITHIN REACH. WILL CONTINUE TO MONITOR. PT IS STILL NPO UNTIL US GUIDED NEEDLE BIOPSY THAT IS ESTIMATED TO BE AT 1500
--- NOTE | 2021-02-22 13:36 | NUR ---
ROUNDED ON PT, PT IS RESTING COMFORTABLE WITH NO SIGNS OF ACUTE DISTRESS. SAFETY MEASURES IN PLACE, CALL LIGHT WITHIN REACH. WILL CONTINUE TO MONITOR
--- NOTE | 2021-02-22 14:32 | NUR ---
02/22/21 RD FOLLOW UP COMPLETED PLEASE REFER TO NUTRITION ASSESSMENT UNDER CARE ACTIVITY FOR ESTIMATED NUTRITIONAL NEEDS. 1. CONTINUE NPO EXCEPT MEDS MEDICALLY NECESSARY 2. WHEN MEDICALLY CLEARED ADVANCE TO REGULAR DIET 3. RD TO FOLLOW-UP 3-5 DAYS, MODERATE RISK SAMANTHA CARR, RD
[2021-02-22] MEDS ORDERED: fentaNYL citrate 0.05 MG/ML VIAL ONE (14:46)
[2021-02-22] MEDS ORDERED: MIDAZOLAM 2 MG/2 ML VIAL ONE (14:46)
--- NOTE | 2021-02-22 15:41 | NUR ---
PT BROUGHT BACK FROM OR AFTER US GUIDED KIDNEY NEEDLE BIOPSY. PT IS RESTING COMFORTABLE WITH NO SIGNS OF DISTRESS. PT VITAL SIGNS STABLE. SAFETY MEASURES IN PLACE, CALL LIGHT WITHIN REACH. WILL CONTINUE TO MONITOR.
[2021-02-22 16:00] VITALS: BP 123/83
--- NOTE | 2021-02-22 17:24 | NUR ---
ROUNDED ON PT, PT IS RESTING COMFORTABLE WITH NO SIGNS OF ACUTE DISTRESS. CALL LIGHT WITHIN REACH. WILL CONTINUE TO MONITOR. BOYFRIEND AT BEDSIDE.
--- NOTE | 2021-02-22 19:13 | NUR ---
PT ENDORSED TO CLIENT DEVELOPMENT CONSULTANT NURSE FOR CONTINUITY OF CARE. IN STABLE CONDITION
--- NOTE | 2021-02-22 19:13 | NUR ---
RECEIVED PATIENT FROM AM SHIFT NURSE FOR CONTINUITY OF CARE. ALERT AND ABLE TO MAKE NEEDS KNOWN. RESPIRATIONS EVEN, UNLABORED. NO S/S RESPIRATORY DISTRESS NOTED. S1/S2 AUSCULTATED. SKIN WARM, DRY. IV SITE TO LEFT ACT 20G PATENT/INTACT, INFUSING FLUIDS WELL. NO C/O PAIN. NO S/S ACUTE DISTRESS. ABDOMEN SOFT, NONTENDER, NONDISTENDED. BOWEL SOUNDS ACTIVE x4 QUADRANTS. PATIENT IS CONTINENT OF B/B. PLAN OF CARE DISCUSSED. SAFETY PRECAUTIONS IN PLACE. CALL LIGHT IN REACH AT ALL TIMES.
--- NOTE | 2021-02-22 21:40 | NUR ---
DUE MEDS GIVEN. PATIENT RESTING COMFORTABLY IN BED. NO S/S RESPIRATORY DISTRESS. NO C/O PAIN. NO S/S ACUTE DISTRESS. CALL LIGHT IN REACH. SAFETY PRECAUTIONS IN PLACE.
--- NOTE | 2021-02-22 23:33 | NUR ---
PATIENT RESTING COMFORTABLY IN BED. NO C/O PAIN. NO S/S ACUTE DISTRESS. CALL LIGHT IN REACH.
[2021-02-23] VITALS: BP 146/77
--- NOTE | 2021-02-23 01:46 | NUR ---
MADE ROUNDS. PATIENT IS ASLEEP. NO S/S ACUTE DISTRESS. CALL LIGHT IN REACH. SAFETY PRECAUTIONS IN PLACE.
--- NOTE | 2021-02-23 03:00 | NUR ---
PATIENT IS ASLEEP. NO S/S ACUTE DISTRESS. CALL LIGHT IN REACH. SAFETY PRECAUTIONS IN PLACE.
[2021-02-23] MEDS: MORPHINE SULFATE 2 MG/ML SYR IVP PRN ×2 (04:01→17:57)
[2021-02-23] MEDS: NACL 0.9% 1,000 ML IV SCH ×3 (04:05→23:55)
--- NOTE | 2021-02-23 05:15 | NUR ---
PATIENT IS ASLEEP. NO S/S ACUTE DISTRESS. CALL LIGHT IN REACH. SAFETY PRECAUTIONS IN PLACE.
[2021-02-23 06:18] LABS: CARBON DIOXIDE 15.3 mmol/L (21-32); CREATININE 1.2 mg/dL (0.6-1.3); POTASSIUM 4.3 mmol/L (3.5-5.1)
[2021-02-23 06:22] LABS: MAGNESIUM 2.4 mg/dL (1.8-2.4); PHOSPHORUS 3.9 mg/dL (2.5-4.9)
[2021-02-23 07:16] LABS: BASOPHILS % (AUTO) 0.3 % (0.0-2.0); EOSINOPHILS # (AUTO) 0.3 K/uL (0-0.4); EOSINOPHILS % (AUTO) 5.3 % (0.0-4.0); HEMATOCRIT 25.6 % (36-48); HEMOGLOBIN 8.5 g/dL (12.0-16.0); LYMPHOCYTES # (AUTO) 0.7 K/uL (2.5-16.5); LYMPHOCYTES % (AUTO) 11.6 % (20.5-51.1); MEAN CORPUSCULAR HEMOGLOBIN 28 pg (27-31); MEAN CORPUSCULAR HGB CONC 33 g/dL (33-37); MEAN CORPUSCULAR VOLUME 82.4 fL (80-94); MONOCYTES # (AUTO) 0.5 K/uL (0.8-1.0); MONOCYTES % (AUTO) 7.9 % (1.7-9.3); NEUTROPHILS # (AUTO) 4.5 K/uL (1.8-7.7); NEUTROPHILS % (AUTO) 74.9 % (42.2-75.2); PLATELET COUNT (AUTO) 123 K/uL (140-450); RED CELL DISTRIBUTION WIDTH 17.8 % (11.6-13.7); WHITE BLOOD COUNT (AUTO) 5.9 K/uL (4.8-10.8)
--- NOTE | 2021-02-23 07:30 | NUR ---
RECEIVED PT AAOX4. NO SOB NOTED. NO C/O PAIN AT THIS TIME. IV TO LAC PATENT AND INTACT. CHEST, DIMINISHED AIR ENTRY TO THE BASES, OTHERWISE CLEAR. ABDOMEN SOFT, BOWEL SOUNDS PRESENT. INSTRUCTED PT TO CALL FOR ASSISTANCE, CALL LIGHT WITHIN REACH, PT VERBALIZED UNDERSTANDING.
[2021-02-23 07:55] LABS: ANTI-NUCLEAR ANTIBODY TITER POSITIVE (Negative)
[2021-02-23 08:00] VITALS: BP 142/78
[2021-02-23 09:06] LABS: HEPATITIS A ANTIBODY IGM Negative (Negative); HEPATITIS B SURFACE ANTIBODY Reactive (.)
[2021-02-23] MEDS: guaiFENesin DM 200/20 MG-10 ML 10 ML UDC PO PRN (09:19)
[2021-02-23] MEDS: ASCORBIC ACID 500 MG/5 ML ORASYR PO SCH (09:19)
[2021-02-23] MEDS: HYDROcodone/APAP 5/325 MG 1 TAB TAB PO PRN (09:20)
[2021-02-23] MEDS: SODIUM ZIRCONIUM CYCLOSILICATE 10 GM POWD.PACK PO SCH (12:09)
--- NOTE | 2021-02-23 12:45 | NUR ---
PT EATING LUNCH. NO COMPLAINTS MADE. ENDORSED PT IN STABLE CONDITION TO AMARJIT IVEY FOR CONTINUITY OF CARE.
--- NOTE | 2021-02-23 12:47 | NUR ---
RECEIVED REPORT FROM DEANNA IVEY, PT IS AAOX4, AMBULATORY, ROOM AIR, CONTINENT, S/P 2 UNITS PRBC AND WITH BILATERAL LE RASHES, S/P LEFT KIDNEY BIOPSY ON 02/22/21 PENDING RESULTS, IV INTACT ON LEFT AC WITH SODIUM CHLORIDE 0.9% 1000 ML AT 100 MLS/HR. SAFETY MEASURES IN PLACE AND CALL LIGHT WITHIN REACH. WILL CONTINUE TO MONITOR.
--- NOTE | 2021-02-23 14:00 | NUR ---
MADE ROUNDS PT IS SLEEPING ON ROOM AIR, STABLE AND NO DISTRESS NOTED.
[2021-02-23 16:00] VITALS: BP 144/98
--- NOTE | 2021-02-23 16:32 | NUR ---
MADE ROUNDS CHECK VITAL SIGNS BP 144/98 ND 96 PT IS STABLE .
--- NOTE | 2021-02-23 18:00 | NUR ---
PAIN MEDICATION GIVEN PAIN SCALE 7/10.
--- NOTE | 2021-02-23 19:19 | NUR ---
ENDORSED TO NIGHT NURSE FOR CONTINUITY OF CARE.PT IS STABLE
--- NOTE | 2021-02-23 19:21 | NUR ---
RECEIVED REPORT FROM CHRISTIAN OCASIO. PT AOX4 ON ROOM AIR. NO S/S RESPIRATORY DISTRESS. NO C/O PAIN AT THIS TIME. IV SITE TO LAC INFILTRATED, SWOLLEN ARM. WILL REMOVE, SAFETY MEASURES IN PLACE. CALL LIGHT WITHIN REACH. WILL CONTINUE TO MONITOR
[2021-02-23 20:00] VITALS: BP 151/88
--- NOTE | 2021-02-23 22:30 | NUR ---
INFILTRATED IV REMOVED CANNULA INTACT, REINSERTED NEW IV TO R HAND 24G, GOOD BLOOD RETURN PATENT INTACT. ADMINISTERED SCHEDULED MEDICATION ORDERED. EDUCATION PROVIDED. NO DISTRESS NOTED. CALL LIGHT WITHIN REACH. WILL CONTINUE TO MONITOR
--- NOTE | 2021-02-24 03:34 | NUR ---
PT ASLEEP IN BED. RESPIRATIONS EVEN UNLABORED. NO DISTRESS NOTED. IVF INFUSING ORDERED. CALL LIGHT WITHIN REACH. WILL CONTINUE TO MONITOR
[2021-02-24 04:00] VITALS: BP 142/88
--- NOTE | 2021-02-24 06:50 | NUR ---
PT SLEEPING IN BED COMFORTABLY. RESPIRATIONS EVEN UNLABORED. NO DISTRESS NOTED. IVF INFUSING ORDERED. CALL LIGHT WITHIN REACH. WILL CONTINUE TO MONITOR
--- NOTE | 2021-02-24 07:05 | NUR ---
RECEIVED PT AAOX4. NO SOB NOTED. NO C/O PAIN AT THIS TIME. IV TO RT HAND PATENT AND INTACT. CHEST, DIMINISHED AIR ENTRY TO THE BASES, OTHERWISE CLEAR. ABDOMEN SOFT, BOWEL SOUNDS PRESENT. INSTRUCTED PT TO CALL FOR ASSISTANCE, CALL LIGHT WITHIN REACH, PT VERBALIZED UNDERSTANDING.
[2021-02-24] MEDS: HYDROcodone/APAP 5/325 MG 1 TAB TAB PO PRN (07:31)
--- NOTE | 2021-02-24 07:32 | NUR ---
ENDORSED PATIENT TO DAY CHARGE NURSE. PT IN STABLE CONDITION. PRN NORCO GIVEN FOR ABD CRAMPS 12/15
[2021-02-24 08:00] VITALS: BP 148/72
[2021-02-24] MEDS ORDERED: predniSONE 20 MG TAB PO SCH (09:00)
[2021-02-24] MEDS ORDERED: lisinopriL 10 MG TAB PO SCH (09:00)
[2021-02-24] MEDS: guaiFENesin DM 200/20 MG-10 ML 10 ML UDC PO PRN (09:26)
[2021-02-24] MEDS: SODIUM ZIRCONIUM CYCLOSILICATE 10 GM POWD.PACK PO SCH (09:26)
[2021-02-24] MEDS: ASCORBIC ACID 500 MG/5 ML ORASYR PO SCH (09:26)
[2021-02-24] MEDS ORDERED: LISI-487 PO (10:11)
[2021-02-24] MEDS ORDERED: CEPH250C16 PO (10:11)
[2021-02-24] MEDS ORDERED: PRED5TAB7 PO (10:11)
--- NOTE | 2021-02-24 10:30 | NUR ---
DR. GLORIA ON ROUNDS WITH ORDER FOR DISCHARGE.
--- NOTE | 2021-02-24 11:30 | NUR ---
DISCHARGE INSTRUCTIONS GIVEN TO PT WHICH VERBALIZED FULL UNDERSTANDING OF THE INSTRUCTIONS AND THE NEED TO FOLLOW UP WITH WITH PCP IN 3-5 DAYS. PT MADE AWARE THAT HER NEW PRESCRIPTIONS WERE SENT [facility] PT'S PREFERRED RX. ARM BANDS IV REMOVED CANNULA TIP INTACT. PT IS WAITING FOR HER RIDE.
--- NOTE | 2021-02-24 11:45 | NUR ---
ESCORTED PT OUT IN STABLE CONDITION. AMBULATORY, NO COMPLAINTS MADE. PT IS D/C HOME WITH SISTER.
== END 2021-02-24 11:45 | disposition home or self-care (01) | DRG 660 ==
LOC: MED 12:12 → MTU 14:50
PROC: 30233N1 Transfusion of Nonautologous Red Blood Cells into Peripheral Vein, Percutaneous Approach (ICD-10-PCS; 2021-02-18)
PROC: 0TB13ZX Excision of Left Kidney, Percutaneous Approach, Diagnostic (ICD-10-PCS; principal; 2021-02-22)
DX: D61.818 Other pancytopenia (principal); N17.0 Acute kidney failure with tubular necrosis; E43 Unspecified severe protein-calorie malnutrition; D63.8 Anemia in other chronic diseases classified elsewhere; E87.1 Hypo-osmolality and hyponatremia; E87.6 Hypokalemia; Z20.822 Contact with and (suspected) exposure to COVID-19; Z68.28 Body mass index [BMI] 28.0-28.9, adult; R80.9 Proteinuria, unspecified; E83.39 Other disorders of phosphorus metabolism; E78.2 Mixed hyperlipidemia; D50.9 Iron deficiency anemia, unspecified
CPT/HCPCS: 36415; 36430; 70450; 71045; 76770; 76942; 80048; 80053; 80305; 81001; 82150; 82570; 82595; 82607; 82728; 82746; 83036; 83520; 83540; 83690; 83735; 83880; 84100; 84134; 84156; 84165; 84439; 84443; 84484; 85018; 85025; 85045; 85610; 85651; 85730; 86038; 86140; 86160; 86430; 86702; 86704; 86706; 86708; 86709; 86803; 86886; 86900; 86901; 86920; 87040; 87081; 87086; 87340; 93005; 96360; 99291; J0696; J1885; J2250; J2270; J2920; J3010; J3475; J7060; J7512; P9016; Q9967

== ENCOUNTER 2021-03-02 09:12 | Emergency (ER) | payer MEDICAID, SELFPAY ==
[~2021-03-02] VITALS: Ht 152.4 cm; Wt 76.2 kg
[~2021-03-02 09:12] MED LIST changes: +CEPH250C16 PO; +LISI-487 PO; +PRED5TAB7 PO
[2021-03-02 09:15] VITALS: BP 167/110
--- NOTE | 2021-03-02 09:20 | NUR ---
PT AMB TO BED 12
--- NOTE | 2021-03-02 09:21 | NUR ---
pt ambulated to bed 12.
[2021-03-02] MEDS ORDERED: FUROSEMIDE 20 MG TAB PO ONE (09:25)
--- NOTE | 2021-03-02 09:40 | NUR ---
Pt states she is unable to provide UA at this time, made aware.
--- NOTE | 2021-03-02 09:43 | NUR ---
US BEDSIDE WITH PATIENT
[2021-03-02] MEDS ORDERED: NACL 0.9% 1,000 ML IV ONE (11:00)
--- NOTE | 2021-03-02 11:00 | NUR ---
XRAY BESIDE WITH PATIENT
--- NOTE | 2021-03-02 11:08 | NUR ---
Collected COVID swab walked to lab.
--- NOTE | 2021-03-02 11:13 | NUR ---
25 FEMALE WITH C/O MARQUISE LEGS PAIN, SWELLING, GENERALIZE WEAKNESS, SOB X 1 WEEK. DISCHARGE FROM [facility] LAST SAT FOR ANEMIA & GOT BLOOD TRANSFUSION. PATIENT STATES FEELING OF "PRESSURE" IN BILATERAL LEGS. PMH: ANEMIA NKA
--- NOTE | 2021-03-02 11:13 | NUR ---
RN BEDSIDE TAKING BELONGINGS LIST
[2021-03-02 11:30] LABS: BILIRUBIN,URINE NEGATIVE (NEGATIVE); BLOOD, URINE 3+ (NEGATIVE); COLOR,URINE YELLOW (YELLOW); LEUKOCYTE ESTERASE ,URINE NEGATIVE (NEGATIVE); NITRITE, URINE NEGATIVE (NEGATIVE); PH,URINE 5.5 (5.0-9.0); UGLUCOSE NEGATIVE (NEGATIVE)
--- NOTE | 2021-03-02 11:34 | NUR ---
PROVIDED TRANSFER REPORT TO LONI MCFADDEN AT [facility]. PROVIDED TRANSFER REPORT TO EMS FOR TRANSFER.
[2021-03-02 11:37] LABS: WBC,URINE 0-5 /HPF (0-5)
[2021-03-02 11:41] VITALS: BP 167/110
[2021-03-02 11:41] LABS: APPEARANCE,URINE SLIGHTLY HAZY (CLEAR); YEAST,URINE Rare /HPF (None Seen)
--- NOTE | 2021-03-02 11:42 | NUR ---
Patient to be transferred to [facility]. Is being transferred due to HIGHER NEED OF CARE. Receiving facility has accepting physician and available space. ER physician has signed transfer form. Patient or responsible alliance party has agreed to transfer and signed form. Patient belongings inventoried and will be sent with patient. Copy of nursing notes, lab reports, EKG, Physicians Orders and X-rays to be sent with patient. Report called to LONI MCFADDEN at receiving facility. [facility] ambulance service has been called for transfer. ETA is 1215.
[2021-03-02 12:01] LABS: BARBITURATE, URINE NEGATIVE ng/ml (NEG <=200); BENZODIAZEPINE, URINE NEGATIVE ng/mL (NEG <=200); CANNABINOID, URINE NEGATIVE ng/mL (NEG <=50); COCAINE, URINE NEGATIVE ng/mL (NEG <=300); OPIATE, URINE NEGATIVE ng/mL (NEG <=2000); PHENCYCLIDINE SCREEN,URINE NEGATIVE ng/mL (NEG <=25)
== END 2021-03-02 11:45 | disposition short-term general hospital (02) ==
LOC: MED 09:12
DX: J90 Pleural effusion, not elsewhere classified (principal); R00.0 Tachycardia, unspecified
CPT/HCPCS: 71045; 80305; 81001; 93005; 93970; 99285

== ENCOUNTER 2022-12-25 15:48 | Emergency (ER) | payer MEDICAID ==
[~2022-12-25] VITALS: Ht 160 cm; Wt 76.2 kg
[~2022-12-25 15:48] MED LIST changes: -ACET-8386 PO; +ACET-8905 PO
[2022-12-25 16:14] VITALS: BP 126/102
--- NOTE | 2022-12-25 16:28 | NUR ---
DR. NAGY NOTIFIED.
--- NOTE | 2022-12-25 16:29 | NUR ---
PATIENT W/C ASSISTED TO BED 03 WITH DAUGHTER. Addendum: 12/25/22 at 1630 by VANESSA Amendment undone in [facility] - 12/25/22 at 1631 by VANESSA PATIENT W/C ASSISTED TO BED 11 WITH DAUGHTER.
[2022-12-25] MEDS ORDERED: IBUP-2213 PO (17:55)
[2022-12-25] MEDS ORDERED: ACETAMINOPHEN EXTRA STRENGTH 500 MG TAB PO ONE (17:55)
[2022-12-25] MEDS ORDERED: ACET-10509 PO (17:55)
[2022-12-25 19:24] VITALS: BP 126/102
--- NOTE | 2022-12-25 19:25 | NUR ---
Patient discharged with v/s stable. Written and verbal after care instructions given and explained. Patient verbalized understanding. Ambulatory with steady gait. All questions addressed prior to discharge. Advised to follow up with PMD.
== END 2022-12-25 19:25 | disposition home or self-care (01) ==
LOC: MED 15:48
DX: I80.02 Phlebitis and thrombophlebitis of superficial vessels of left lower extremity (principal); I10 Essential (primary) hypertension; K21.9 Gastro-esophageal reflux disease without esophagitis; N18.4 Chronic kidney disease, stage 4 (severe); Z79.899 Other long term (current) drug therapy
CPT/HCPCS: 93971; 99284; Q0092

== ENCOUNTER 2023-11-01 04:15 | Emergency (ER) | payer MEDICAID, OTHER ==
[~2023-11-01] VITALS: Ht 160 cm; Wt 77.1 kg
[~2023-11-01 04:15] MED LIST changes: +ACET-10509 PO
[2023-11-01 04:27] VITALS: BP 116/79; PULSE 78; RESP 16; TEMP 98.3; O2SAT 98
[2023-11-01] MEDS ORDERED: ALUMINUM HYD/MAG/SIMETHICONE 30 ML UDC ONE (06:36)
[2023-11-01] MEDS ORDERED: DICYCLOMINE HCL LIQUID 10 MG/5 ML UDC ONE (06:36)
[2023-11-01 06:56] LABS: BASOPHILS % (AUTO) 0.5 % (0.0-2.0); EOSINOPHILS # (AUTO) 0.1 K/uL (0-0.4); EOSINOPHILS % (AUTO) 1.1 % (0.0-4.0); HEMATOCRIT 47.3 % (36-48); HEMOGLOBIN 16.1 g/dL (12.0-16.0); LYMPHOCYTES # (AUTO) 1.1 K/uL (2.5-16.5); LYMPHOCYTES % (AUTO) 18.7 % (20.5-51.1); MEAN CORPUSCULAR HEMOGLOBIN 30 pg (27-31); MEAN CORPUSCULAR HGB CONC 34 g/dL (33-37); MEAN CORPUSCULAR VOLUME 86.9 fL (80-94); MONOCYTES # (AUTO) 0.5 K/uL (0.8-1.0); MONOCYTES % (AUTO) 9.3 % (1.7-9.3); NEUTROPHILS % (AUTO) 70.4 % (42.2-75.2); PLATELET COUNT (AUTO) 186 K/uL (140-450); RED BLOOD CELL COUNT(AUTO) 5.45 MIL/uL (4.20-5.40); RED CELL DISTRIBUTION WIDTH 12.9 % (11.6-13.7); WHITE BLOOD COUNT (AUTO) 5.7 K/uL (4.8-10.8)
[2023-11-01 07:01] LABS: APPEARANCE,URINE CLEAR (CLEAR); BILIRUBIN,URINE NEGATIVE (NEGATIVE); BLOOD, URINE TRACE-I (NEGATIVE); COLOR,URINE YELLOW (YELLOW); LEUKOCYTE ESTERASE ,URINE NEGATIVE (NEGATIVE); NITRITE, URINE NEGATIVE (NEGATIVE); PH,URINE 6.5 (5.0-9.0); PROTEIN,URINE 2+ (NEGATIVE); UGLUCOSE NEGATIVE (NEGATIVE); UROBILINOGEN,URINE 0.2 EU/dL (0.2 - 1)
[2023-11-01] MEDS: NACL 0.9% 1,000 ML IV ONE (07:05)
[2023-11-01] MEDS: ONDANSETRON 4 MG/2 ML VIAL IVP ONE (07:06)
[2023-11-01] MEDS: FAMOTIDINE 20 MG/2 ML VIAL IVP ONE (07:06)
[2023-11-01 07:07] LABS: ALBUMIN 3.6 g/dL (3.4-5.0); ANION GAP 14.8 (8-16); CALCIUM 8.9 mg/dL (8.5-10.1); CARBON DIOXIDE 25.7 mmol/L (21-32); POTASSIUM 4.5 mmol/L (3.5-5.1); TOTAL BILIRUBIN 0.3 mg/dL (0.0-1.0); TOTAL PROTEIN, SERUM 8.6 g/dL (6.4-8.2)
[2023-11-01] MEDS: DICYCLOMINE HCL LIQUID 20 MG, ALUMINUM HYD/MAG/SIMETHICONE 30 ML, LIDOCAINE VISCOUS 2% ... PO ONE (07:07)
[2023-11-01 07:23] LABS: AMPHETAMINE, URINE NEGATIVE ng/ml (NEG <=1000); BARBITURATE, URINE NEGATIVE ng/ml (NEG <=200); BENZODIAZEPINE, URINE NEGATIVE ng/mL (NEG <=200); CANNABINOID, URINE POSITIVE ng/mL (NEG <=50)
[2023-11-01 07:24] LABS: COCAINE, URINE NEGATIVE ng/mL (NEG <=300); OPIATE, URINE NEGATIVE ng/mL (NEG <=2000); PHENCYCLIDINE SCREEN,URINE NEGATIVE ng/mL (NEG <=25)
[2023-11-01 07:29] LABS: BACTERIA,URINE FEW /HPF (None Seen); RBC,URINE 0-5 /HPF (0-5); SQUAMOUS EPITHELIAL CELL,UR 0-3 (FEW) /LPF (0-3 (FEW)); WBC,URINE 0-5 /HPF (0-5)
[2023-11-01] MEDS ORDERED: OMEP20EC11 PO (08:00)
[2023-11-01] MEDS ORDERED: ONDA-188 PO (08:00)
[2023-11-01 08:17] VITALS: BP 133/81; PULSE 76; RESP 16; TEMP 98; O2SAT 99
== END 2023-11-01 08:20 | disposition home or self-care (01) ==
LOC: MED 04:15
DX: K21.9 Gastro-esophageal reflux disease without esophagitis (principal); I12.9 Hypertensive chronic kidney disease with stage 1 through stage 4 chronic kidney disease, or unspecified chronic kidney disease; N18.4 Chronic kidney disease, stage 4 (severe); Z98.890 Other specified postprocedural states; Z79.899 Other long term (current) drug therapy
CPT/HCPCS: 36415; 80053; 80305; 81001; 81025; 83690; 84703; 85025; 96361; 96374; 96375; 99284; J2405; J3490; J7030